=== PATIENT | female | born 1970 | race Caucasian/White ===

== ENCOUNTER 2017-01-16 09:30 | Inpatient (IN) | payer MEDICARE, OTHER ==
[~2017-01-16] VITALS: Ht 167.6 cm; Wt 84.0 kg
[~2017-01-16 09:30] MED LIST: CARB1TAB48 PO; CETI10 PO; COPA20KI SQ; DIAZ5 PO; EPIP0.3I IM; HALO0.5T PO; METO25TA3 PO; PRAV80TA2 PO; PRED20 PO; REST15CA PO; TIZA2TAB PO; TOPI200 PO; TRAZ50TA12 PO
[2017-01-16 09:36] VITALS: BP 132/75; PULSE 98; RESP 20; TEMP 97.9; O2SAT 95
[2017-01-16] MEDS ORDERED: OXYC1TAB36 PO (10:18)
--- NOTE | 2017-01-16 10:28 | PD ---
HPI Chief Complaint: Pain: Acute or Chronic Time Seen by Provider: 10:07 Travel History International Travel<30 days: No Contact w/Intl Traveler<30days: No Traveled to known affect area: No History of Present Illness HPI The patient was seen and examined in the presence of the nurse. This patient complains of a flare of her MS. It started last night. Duration is 12 hours. She developed worsening weakness in both legs and essentially paralysis in her left arm. It is contracted and she cannot move it. She called the ambulance this morning who brought her in. No alleviating factors. Symptoms are severe. No fever or head injury. PFSH Past Medical History Hx Anticoagulant Therapy: Yes (ASA) Arthritis: No Asthma: No Autoimmune Disease: No Blood Disorders: No Anxiety: Yes Depression: Yes Heart Rhythm Problems: Yes (HX V-TACH) Cancer: Yes Cardiovascular Problems: Yes ([place] 2013) High Cholesterol: Yes Chemotherapy: No Chest Pain: No Congestive Heart Failure: No COPD: No Cerebrovascular Accident: Yes (CVA 2013) Diabetes: Yes Diminished Hearing: No Endocrine: Yes Fibromyalgia: Yes GERD: No Genitourinary: Yes Headaches: Yes Hiatal Hernia: No Hypertension: Yes Immune Disorder: No Implanted Vascular Access Dvce: Yes Kidney Stones: No Musculoskeletal: No Neurologic: Yes (MS) Psychiatric: Yes Reproductive: Yes (HPV) Respiratory: Yes (BILATERAL LUNG CANCER) Migraines: No Radiation Therapy: Yes Renal Failure: No Seizures: Yes Sickle Cell Disease: No Sleep Apnea: No Thyroid Disease: No Ulcer: No ?: Not Menopausal: Yes : 3 Para: 3 Past Surgical History Abdominal Surgery: No AICD: No Appendectomy: Yes Arteriovenous Shunt: No Body Medical Devices: RIGHT VENTRICULAR SHUNT Cardiac Surgery: No Section: Yes (X 2) Ear Surgery: No Endocrine Surgery: No Eye Surgery: Yes Genitourinary Surgery: No Gynecologic Surgery: Yes (HYSTERECTOMY) Hysterectomy: Yes Insulin Pump: No Joint Replacement: No Neurologic Surgery: Yes (BRAIN X4; SPINE X2, SHUNT, CHIARI REPAIR) Oral Surgery: No Pacemaker: No Thoracic Surgery: No Other Surgery: Yes (BRAIN-SHUNT) Social History Alcohol Use: No Tobacco Use: No Substance Use: No Allergies-Medications (Allergen,Severity, Reaction): Coded Allergies: Codeine (Verified Allergy, Severe, 08/05/16) Penicillin (Verified Allergy, Severe, 08/05/16) MRI PRECAUTION (Verified Adverse Reaction, Severe, ANEURYSM CLIPS 11/18/13 VSV, 08/05/16) Uncoded Allergies: MRI due to anerysm clips (Allergy, Severe, contraindicated , 11/18/13) spoke with Michaelle Foy. Reported Meds & Prescriptions Reported Meds & Active Scripts Active Prednisone 20 Mg Tab 60 Mg PO DIRECTED 30 Days PREDNISONE 60MG DAILY x 7 DAYS, PREDNISONE 40MG DAILY x 7 DAYS, PREDNISONE 20MG DAILY x 16 DAYS. Valium (Diazepam) 5 Mg Tab 5 Mg PO BID PRN Haloperidol 0.5 Mg Tab 0.5 Mg PO BID Reported Oxycodone-Acetaminophen 10-325 mg Tab 1 Tab PO Q4H PRN Cetirizine (Cetirizine HCl) 10 Mg Tab 10 Mg PO DAILY Trazodone (Trazodone HCl) 50 Mg Tab 50 Mg PO HS Metoprolol Tartrate 25 Mg Tab 12.5 Mg PO DAILY Pravastatin 80 Mg Tab 80 Mg PO HS Topamax (Topiramate) 200 Mg Tab 200 Mg PO DAILY Carbamazepine ER 12 HR (Carbamazepine) 100 Mg Tab 100 Mg PO BID Copaxone Inj (Glatiramer Inj) 20 Mg/Ml Syr 20 Mg SQ DAILY Tizanidine (Tizanidine HCl) 2 Mg Tab 4 Mg PO TID Epipen 2-Corey Inj (Epinephrine) 0.3 Mg/0.3 Ml Pfpen 0.3 Mg IM DIRECTED PRN Review of Systems General / Constitutional: No: Fever Eyes: No: Visual changes HENT: No: Headaches Cardiovascular: No: Chest Pain or Discomfort Respiratory: No: Shortness of Breath Gastrointestinal: No: Abdominal Pain Genitourinary: No: Dysuria Musculoskeletal: Positive: Myalgias, Arthralgias, Limited ROM, Weakness, No: Pain Skin: No Rash Neurologic: Positive: Weakness Psychiatric: No: Depression Endocrine: No: Polydipsia Hematologic/Lymphatic: No: Easy Bruising Physical Exam Narrative GENERAL: Well-nourished, well-developed patient in no apparent distress. SKIN: Focused skin assessment reveals no rash and nodules. Skin is Warm and dry. HEAD: Atraumatic. Normocephalic. EYES: Pupils equal and round. No scleral icterus. No injection or drainage. ENT: No nasal bleeding or discharge. Mucous membranes pink and moist. NECK: Trachea midline. No JVD. CARDIOVASCULAR: Regular rate and rhythm. No murmur appreciated. RESPIRATORY: No accessory muscle use. Clear to auscultation. Breath sounds equal bilaterally. GASTROINTESTINAL: Abdomen soft, non-tender, nondistended. Hepatic and splenic margins not palpable. MUSCULOSKELETAL: No obvious deformities. No clubbing. No cyanosis. No edema. NEUROLOGICAL: Awake and alert. No obvious cranial nerve deficits. Motor exam reveals a contracted left arm which she cannot move at all. Decent strength in the right arm. Very limited strength in the legs. She can barely lift them off the bed. She can wiggle her toes. Soft-spoken but understandable speech PSYCHIATRIC: Appropriate mood and affect; insight and judgment normal. Data Data Last Documented VS Vital Signs Date Time Temp Pulse Resp B/P Pulse Ox O2 Delivery O2 Flow Rate FiO2 01/16/17 09:36 97.9 98 20 132/75 95 Orders Iv Access Insert/Monitor (01/16/17 10:20) Complete Blood Count With Diff (01/16/17 10:20) Basic Metabolic Panel (Bmp) (01/16/17 10:20) Ct Brain W/O Iv Contrast(Rout) (01/16/17 ) Vascular Access Team Consult/P PRN (01/16/17 11:51) Vascular Poc Ultrasound (01/16/17 ) Place In Observation (01/16/17 ) Code Status (01/16/17 11:57) Vital Signs (Adult) Q4H (01/16/17 11:57) Neuro Checks Q4H (01/16/17 11:57) Activity Oob Ad [place] (01/16/17 11:57) Diet Heart Healthy (01/16/17 Lunch) Sodium Chloride 0.9% Flush (Ns Flush) (01/16/17 12:00) Sodium Chloride 0.9% Flush (Ns Flush) (01/16/17 21:00) Ondansetron Inj (Zofran Inj) (01/16/17 12:00) Basic Metabolic Panel (Bmp) (01/17/17 06:00) Complete Blood Count With Diff (01/17/17 06:00) Pt Request For Service (01/16/17 11:57) Ot Request For Service (01/16/17 11:57) Case Management Consult (01/16/17 11:57) Enoxaparin Inj (Lovenox Inj) (01/16/17 13:00) Naloxone Inj (Narcan Inj) (01/16/17 12:00) Acetaminophen (Tylenol) (01/16/17 12:00) Ibuprofen (Motrin) (01/16/17 12:00) Oxycodone-Acetamin 5-325 Mg (Percocet (01/16/17 12:00) Oxycodone-Acetamin 10-325 Mg (Percocet 1 (01/16/17 12:00) Morphine Inj (Morphine Inj) (01/16/17 12:00) Naloxone Inj (Narcan Inj) (01/16/17 12:00) Code Status (01/16/17 12:03) Admit Order (Ed Use Only) (01/16/17 12:11) Labs Laboratory Tests Test 01/16/17 10:30 White Blood Count 11.1 TH/MM3 Red Blood Count 4.76 MIL/MM3 Hemoglobin 14.6 GM/DL Hematocrit 43.1 % Mean Corpuscular Volume 90.5 FL Mean Corpuscular Hemoglobin 30.7 PG Mean Corpuscular Hemoglobin 33.9 % Concent Red Cell Distribution Width 14.4 % Platelet Count 190 TH/MM3 Mean Platelet Volume 9.6 FL Neutrophils (%) (Auto) 69.7 % Lymphocytes (%) (Auto) 23.1 % Monocytes (%) (Auto) 6.8 % Eosinophils (%) (Auto) 0.2 % Basophils (%) (Auto) 0.2 % Neutrophils # (Auto) 7.7 TH/MM3 Lymphocytes # (Auto) 2.6 TH/MM3 Monocytes # (Auto) 0.8 TH/MM3 Eosinophils # (Auto) 0.0 TH/MM3 Basophils # (Auto) 0.0 TH/MM3 CBC Comment DIFF FINAL Differential Comment Sodium Level 145 MEQ/L Potassium Level 3.5 MEQ/L Chloride Level 113 MEQ/L Carbon Dioxide Level 20.8 MEQ/L Anion Gap 11 MEQ/L Blood Urea Nitrogen 15 MG/DL Creatinine 0.74 MG/DL Estimat Glomerular Filtration 84 ML/MIN Rate Random Glucose 112 MG/DL Calcium Level 9.1 MG/DL MDM Medical Decision Making Medical Screen Exam Complete: Yes Emergency Medical Condition: Yes Medical Record Reviewed: Yes Differential Diagnosis Exacerbation of MS, CVA, anxiety Narrative Course I have reviewed the patient's electronic medical record. Patient was admitted for MS flare July 2016 and I reviewed the neurologic consultation CBC is normal Metabolic profile is normal CT brain shows no change from prior. Incidental findings are noted. Patient has a rather profound presentation which may be some degree of MS and also some degree of psychiatric. It's hard to sort out. I did review in detail with neurologist cell operation supervisor who recommended admission with a consult to him. He recommends holding off on any multiple sclerosis type of medication such as steroids until he can evaluate the patient. I reviewed with the medical residents who will admit Diagnosis Primary Impression: Multiple sclerosis exacerbation Admitting Information Admitting Physician Requests: Admit Mumtaz Keith MD Jan 16, 2017 10:27
[2017-01-16 10:44] LABS: AUTOMATED NEUTROPHIL # 7.7 TH/MM3 (1.8-7.7); BASOPHIL % 0.2 % (0.0-2.0); EOSINOPHIL % 0.2 % (0.0-4.0); HEMATOCRIT 43.1 % (35.0-46.0); LYMPH % 23.1 % (9.0-44.0); LYMPHOCYTE # 2.6 TH/MM3 (1.0-4.8); MEAN CELL VOLUME 90.5 FL (80.0-100.0); MEAN CORPUSCULAR HEMOGLOBIN 30.7 PG (27.0-34.0); MEAN CORPUSCULAR HGB CONC 33.9 % (32.0-36.0); MONO % 6.8 % (0.0-8.0); NEUT % 69.7 % (16.0-70.0); PLATELET COUNT 190 TH/MM3 (150-450); RED BLOOD COUNT 4.76 MIL/MM3 (4.00-5.30); RED CELL DISTRIBUTION WIDTH 14.4 % (11.6-17.2); WHITE BLOOD COUNT 11.1 TH/MM3 (4.0-11.0)
[2017-01-16 10:45] LABS: HEMO FLAGS DIFF FINAL
[2017-01-16 11:00] LABS: BICARBONATE 20.8 MEQ/L (21.0-32.0); POTASSIUM 3.5 MEQ/L (3.5-5.1)
--- NOTE | 2017-01-16 11:01 | RADRPT ---
EXAM DATE/TIME: 01/16/2017 10:46 [facility] COMPARISON: CT BRAIN W/O CONTRAST, January 18, 2015, 16:51. CT BRAIN W/O CONTRAST, July 29, 2016, 18:17. INDICATIONS : Generalized pain and weakness. RADIATION DOSE: 43.30 CTDIvol (mGy) MEDICAL HISTORY : Seizures. Cardiovascular disease Hypertension.cva, MS, lung cancer SURGICAL HISTORY : Hysterectomy. shunt, aneurysm clipping ENCOUNTER: Initial ACUITY: 1 day PAIN SCALE: 10/10 LOCATION: cranial TECHNIQUE: Multiple contiguous axial images were obtained of the head. Using automated exposure control and adj ustment of the mA and/or kV according to patient size, radiation dose was kept as low as reasonably a chievable to obtain optimal diagnostic quality images. FINDINGS: There is ventriculostomy catheter in place with small slitlike ventricles. Aneurysm clips are seen o n the left. There is no parenchymal hemorrhage, mass effect or midline shift. There are no extra-ax ial fluid collections appreciated. Posterior fossa is unremarkable. CONCLUSION: Status post ventriculostomy and aneurysm clipping. Ventricles are small and slitlike., Stable in th e interval. Aneurysm clips are noted. Roman Scanlon MD FACR on January 16, 2017 at 10:51 Board Certified Radiologist. This report was verified electronically.
[2017-01-16] MEDS ORDERED: MORPHINE SULFATE 4 MG/ML INJ IV PRN (12:00)
[2017-01-16] MEDS ORDERED: ACETAMINOPHEN 325 MG TAB PO PRN (12:00)
[2017-01-16] MEDS ORDERED: IBUPROFEN 400 MG TAB PO PRN (12:00)
[2017-01-16] MEDS ORDERED: NALOXONE HCL 0.4 MG/ML AMP IV PRN ×2 (12:00)
[2017-01-16] MEDS ORDERED: SODIUM CHLORIDE 0.9% FLUSH 10 ML FLUSH IV FLUSH PRN (12:00)
[2017-01-16] MEDS ORDERED: ONDANSETRON HCL 4 MG/2 ML VIAL IVP PRN (12:00)
[2017-01-16] MEDS ORDERED: oxyCODONE/ACETAMINOPHEN 5 MG/325 MG TAB PO PRN (12:00)
--- NOTE | 2017-01-16 12:16 | HHI.HP ---
[facility] Service Family Medicine Primary Care Physician Dc Gutierrez MD Admission Diagnosis exac of MS Diagnoses: International Travel<30 Days: No Contact w/Intl Traveler<30days: No Known Affected Area: No History of Present Illness Of note patient is a poor historian This is a 46 year old women with an extensive past medical history of HTN, Hyperlipidemia, Anxiety, Depression, Fibromyalgia, IBS, SLINGER SEQUINS Shunt and MS who came into the ER complaints of a flareup of her MS. She says that starting last night she felt her left arm kory in her feet kory inwards. Her arm became contracted to the point where she can no longer move it this morning. This concerned her and she decided to come to the [facility] ED for further evaluation. She does report for the last 2 days noticing worsening blurriness when she is watching TV. She says that she has to swing her hips in order to walk to the contractions in her feet. Her muscles are painful throughout her entire body. Of note she reports that she's been without her chronic opiates for the last few days. (Alonso Deal MD R2) Review of Systems ROS Limitations: Clinical Condition, Poor Historian Constitutional: COMPLAINS OF: Fatigue, Dizziness, DENIES: Fever, Weight gain, Weight loss, Change in appetite Endocrine: DENIES: Polyuria, Polyphagia Eyes: COMPLAINS OF: Blurred vision, Vision loss, DENIES: Diplopia, Eye inflammation, Eye pain, Photosensitivity, Double Vision Ears, nose, mouth, throat: DENIES: Tinnitus, Hearing loss, Oral lesions, Throat pain, Hoarseness, Ear Pain, Running Nose, Sinus Pain Respiratory: COMPLAINS OF: Wheezing, DENIES: Cough, Sputum production, Shortness of breath Cardiovascular: DENIES: Chest pain, Lower Extremity Edema Gastrointestinal: COMPLAINS OF: Diarrhea, DENIES: Abdominal pain, Black stools , Bloody stools, Constipation, Nausea, Vomiting Genitourinary: DENIES: Dyspareunia, Urinary frequency, Urinary incontinence, Urgency, Vaginal discharge Musculoskeletal: DENIES: Joint pain, Joint Swelling, Back pain, Neck pain Integumentary: DENIES: Pruritus, Rash Hematologic/lymphatic: DENIES: Bruising Immunologic/allergic: DENIES: Eczema Neurologic: COMPLAINS OF: Abnormal gait, Headache, Localized weakness, Paresthesias, Poor Balance, DENIES: Seizures, Speech Problems, Tremor Psychiatric: COMPLAINS OF: Anxiety, DENIES: Depression (Alonso Deal MD R2) Past Family Social History Past Medical History HTN, Hyperlipidemia, Anxiety, Depression, Fibromyalgia, IBS, SLINGER SEQUINS Shunt and MS Past Surgical History Appendectomy, SLINGER SEQUINS Shunt, , Hysterectomy Reported Medications Reported Meds & Active Scripts Active Prednisone 20 Mg Tab 60 Mg PO DIRECTED 30 Days PREDNISONE 60MG DAILY x 7 DAYS, PREDNISONE 40MG DAILY x 7 DAYS, PREDNISONE 20MG DAILY x 16 DAYS. Valium (Diazepam) 5 Mg Tab 5 Mg PO BID PRN Haloperidol 0.5 Mg Tab 0.5 Mg PO BID Reported Oxycodone-Acetaminophen 10-325 mg Tab 1 Tab PO Q4H PRN Cetirizine (Cetirizine HCl) 10 Mg Tab 10 Mg PO DAILY Trazodone (Trazodone HCl) 50 Mg Tab 50 Mg PO HS Metoprolol Tartrate 25 Mg Tab 12.5 Mg PO DAILY Pravastatin 80 Mg Tab 80 Mg PO HS Topamax (Topiramate) 200 Mg Tab 200 Mg PO DAILY Carbamazepine ER 12 HR (Carbamazepine) 100 Mg Tab 100 Mg PO BID Copaxone Inj (Glatiramer Inj) 20 Mg/Ml Syr 20 Mg SQ DAILY Tizanidine (Tizanidine HCl) 2 Mg Tab 4 Mg PO TID Epipen 2-Corey Inj (Epinephrine) 0.3 Mg/0.3 Ml Pfpen 0.3 Mg IM DIRECTED PRN ( Alonso Deal MD R2) Allergies: Coded Allergies: Codeine (Verified Allergy, Severe, 08/05/16) Penicillin (Verified Allergy, Severe, 08/05/16) MRI PRECAUTION (Verified Adverse Reaction, Severe, ANEURYSM CLIPS 11/18/13 VSV, 08/05/16) Uncoded Allergies: MRI due to anerysm clips (Allergy, Severe, contraindicated , 11/18/13) spoke with Michaelle Foy. 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 SKIN: Focused skin assessment reveals no rash and nodules. Skin is Warm and dry. HEAD: Atraumatic. Normocephalic. EYES: Pupils equal and round. No scleral icterus. No injection or drainage. ENT: No nasal bleeding or discharge. Mucous membranes pink and moist. NECK: Trachea midline. No JVD. CARDIOVASCULAR: Regular rate and rhythm. No murmur appreciated. RESPIRATORY: No accessory muscle use. Clear to auscultation. Breath sounds equal bilaterally. GASTROINTESTINAL: Abdomen soft, non-tender, nondistended. Hepatic and splenic margins not palpable. MUSCULOSKELETAL: No obvious deformities. No clubbing. No cyanosis. No edema. NEUROLOGICAL: Awake and alert. No obvious cranial nerve deficits. Motor exam reveals a contracted left arm which she cannot move at all. Decent strength in the right arm. Very limited strength in the legs. She can barely lift them off the bed. She can wiggle her toes. When distracted patient has increased movement in arm and legs. Normal speech PSYCHIATRIC: Appropriate mood and affect; insight and judgment normal. Laboratory Laboratory Tests Test 01/16/17 10:30 White Blood Count 11.1 Red Blood Count 4.76 Hemoglobin 14.6 Hematocrit 43.1 Mean Corpuscular Volume 90.5 Mean Corpuscular Hemoglobin 30.7 Mean Corpuscular Hemoglobin 33.9 Concent Red Cell Distribution Width 14.4 Platelet Count 190 Mean Platelet Volume 9.6 Neutrophils (%) (Auto) 69.7 Lymphocytes (%) (Auto) 23.1 Monocytes (%) (Auto) 6.8 Eosinophils (%) (Auto) 0.2 Basophils (%) (Auto) 0.2 Neutrophils # (Auto) 7.7 Lymphocytes # (Auto) 2.6 Monocytes # (Auto) 0.8 Eosinophils # (Auto) 0.0 Basophils # (Auto) 0.0 CBC Comment DIFF FINAL Differential Comment Sodium Level 145 Potassium Level 3.5 Chloride Level 113 Carbon Dioxide Level 20.8 Anion Gap 11 Blood Urea Nitrogen 15 Creatinine 0.74 Estimat Glomerular Filtration 84 Rate Random Glucose 112 Calcium Level 9.1 (Alonso Deal MD R2) Result Diagram: 01/16/17 1030 01/16/17 1030 Imaging Last Impressions Head CT 01/16/17 0000 Signed Impressions: Service Date/Time: Monday, January 16, 2017 10:46 - CONCLUSION: Status post ventriculostomy and aneurysm clipping. Ventricles are small and slitlike., Stable in the interval. Aneurysm clips are noted. Roman Scanlon MD FACR (Alonso Deal MD R2) Assessment and Plan Assessment and Plan This is a 46 year old women with an extensive past medical history of HTN, Hyperlipidemia, Anxiety, Depression, Fibromyalgia, IBS, SLINGER SEQUINS Shunt and MS being admitted for multiple sclerosis exacerbation. Code Status DNR Discussed Condition With [facility]: Dr. Jarrell (Alonso Deal MD R2) Attending Attestation Patient seen and examined. Case reviewed and discussed with the resident team. Agree with plan of care as discussed with me and documented in the resident note. pt seen on admission in ED (Munira Jarrell MD) Problem List: (1) Multiple sclerosis exacerbation Status: Acute Plan: Acute on chronic exacerbation of her multiple sclerosis. CT did not show any acute changes. Current symptoms involved contracture of the left arm and weakness of the lower extremities. * Admit to observation * Neurology consulted recommendations appreciated * Per current recommendations will not start steroids until evaluated by neurologist * Zofran for nausea/vomiting * Percocet 5/325 mg every 6 hours when necessary 3-5 * Percocet 10/325 mg every 6 hours when necessary 6-10 * 2 mg IV every 3 hours when necessary breakthrough pain * Continue home medication of Glatiramer inj * CBC, BMP ordered for the a.m. 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 * Status post SLINGER SEQUINS shunt, CT unchanged from previous imaging will continue to monitor (5) brain aneurysm status post clipping Status: Resolved 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 * Continue to monitor at this time CT unchanged from previous imaging (6) Depression Status: Chronic Plan: Long-standing history of anxiety and depression * Continue home medication of trazodone 50 mg by mouth at bedtime * Continue home medication of diazepam 5 mg by mouth twice a day when necessary anxiety (7) Nutrition, metabolism, and development symptoms Status: Acute Plan: Diet: Heart healthy Monitor electrolytes and replace accordingly Out of bed ad fredrick. Vitals every 4 Neuro checks every 4 DVT prophylaxis with Lovenox Disposition: Pending neurology recommendations Code Status: DNR (Alonso Deal MD R2) Problem Qualifiers (1) HTN (hypertension): Qualified Code: I10 - Essential hypertension (2) Depression: Qualified Code: F32.9 - Depression, unspecified depression type Alonso Deal MD R2 Jan 16, 2017 12:16 Munira Jarrell MD Jan 17, 2017 13:07
[2017-01-16 15:00] VITALS: BP 132/68; PULSE 68; RESP 18; O2SAT 98
[2017-01-16] MEDS: ENOXAPARIN SODIUM 40 MG/0.4 ML SYRINGE SQ SCH (15:53)
[2017-01-16 16:00] VITALS: BP 115/59; PULSE 67; RESP 18; O2SAT 98
[2017-01-16] MEDS: PANTOPRAZOLE SODIUM 40 MG VIAL IV PUSH SCH (16:10)
[2017-01-16] MEDS: methylPREDNISolone SOD SUCC 125 MG/2 ML VIAL IV PUSH SCH ×3 (16:11→23:03)
--- NOTE | 2017-01-16 19:31 | MB ---
cc: MARY VANG M.D. DATE OF CONSULTATION 01/16/2017 She is a 46-year-old woman seen in neurological consultation. Case discussed with Dr. Keith a couple of hours ago. The patient has multiple sclerosis. She follows with Dr. Foy. She has been on Copaxone three times a week. She has had MS apparently since 2013 or so. She has a history of hospitalization in July or August last year with a somewhat similar situation. She came in this time because of left arm spasming in a contracture manner, flexed. She also describes that her feet have turned to be somewhat contracted when she is walking and all of this started yesterday, last evening more precisely. She describes that in July or August last year she had both arms involved in the same situation and she was at the hospital and was treated with steroids IV as usual. She also had another bout of multiple sclerosis and I believe this was a couple of years ago when she was paralyzed from the neck down and she stayed in the rehab hospital for 4 months or so after the acute care. Furthermore her neurologic history includes what she describes as pseudotumor cerebri and bilateral cerebral aneurysm. She had the left-sided aneurysmal clip and she says the right was not clamped. She as Chiari malformation. She is on chronic pain killer oxycodone. She takes what appears to be low dose Haldol, nifedipine, Valium. She has severe paraparesis. She describes that she walks using her hips rather than her legs and she shuffles. She uses a cane and wheelchair or an electric scooter type of equipment. She lives in assisted living facility. PHYSICAL EXAMINATION On exam she is actually quite pleasant and provided the detailed history. I have not had a chance to review much of records on her. She is in no distress. Pupils were equal, reactive. Visual cho full. Speech and language appears to be all normal. She is edentulous. Her right arm is functioning well, appears to be normal. Her left arm is in contracture, flexed at the elbow very strongly and even when I try to release it, I was unable to do that more than just an inch or so of elbow extension. The wrist itself is somewhat flaccid and there is minimal finger movements. She also resists left shoulder range of motion. The legs are increased in tone mildly and flaccid with very mild toe motion voluntarily. She has hip motor function, rotate the legs through the hip muscles. She is unable to flex the knee. Reflexes were trace responses, plantar responses equivocal possibly extensor bilaterally. Position sense with some impairment in the distal lower extremities but partially preserved. With encouragement she was able to moderate change in position. No sensory level. ASSESSMENT History of multiple sclerosis. Multiple other neurological diagnoses as outlined above and there is some psychiatric history including anxiety. It is possible that she has a genuine multiple sclerosis exacerbation though it is difficult to understand these sudden contracture type of posturing rather than just weakness initially to explain the motor change. I will give her the benefit of the doubt and start her on Solu-Medrol as she desires and she has done through these in the past with good results without complications. She will be started on Solu-Medrol 250 IV q.6h for 12 doses and Protonix 40 mg a day. Because of her aneurysm clipping, MRI is not readily feasible at least, though the patient claims that when she lived in [place] she used to have MRI studies, unclear to me if this was definitely before the clip. Otherwise general medical care. DVT prophylaxis with SCDs. Start physical therapy, perhaps tomorrow. I looked at the CT brain that was negative for acute process but showed ventriculostomy as per the patient this is secondary to the pseudo tumor cerebri and it also showed the aneurysmal clip. The CBC and chemistry relatively benign. Thank you for asking us to assist in her care. Mary Vang MD OF[facility]/KK /3:18 PM /7:01 PM
[2017-01-16 21:00] VITALS: BP 118/65; PULSE 84; RESP 16; O2SAT 100
[2017-01-16] MEDS: SODIUM CHLORIDE 0.9% FLUSH 10 ML FLUSH IV FLUSH SCH (21:00)
[2017-01-16] MEDS ORDERED: HALOPERIDOL 0.5 MG TAB PO PRN (21:00)
[2017-01-16] MEDS ORDERED: HALOPERIDOL 0.5 MG TAB PO SCH (21:00)
[2017-01-16] MEDS: PRAVASTATIN SOD 80 MG TAB PO SCH (21:46)
[2017-01-16] MEDS: traZODone HCL 50 MG TAB PO SCH (21:46)
[2017-01-16] MEDS: oxyCODONE/ACETAMINOPHEN 10 MG/325 MG TAB PO PRN (21:47)
[2017-01-16] MEDS: DIAZEPAM 5 MG TAB PO PRN (21:47)
[2017-01-16 23:02] VITALS: BP 116/60; PULSE 59; RESP 20; TEMP 97.9; O2SAT 96
[2017-01-17] MEDS: oxyCODONE/ACETAMINOPHEN 10 MG/325 MG TAB PO PRN ×3 (03:24→21:58)
[2017-01-17 03:47] VITALS: BP 89/49; PULSE 54; RESP 20; TEMP 97.7; O2SAT 98
[2017-01-17 06:07] VITALS: BP 104/76
[2017-01-17 08:10] VITALS: BP 97/50; PULSE 60; RESP 19; TEMP 97.9; O2SAT 98
[2017-01-17] MEDS ORDERED: GLATIRAMER 40 MG SQ SCH (09:00)
--- NOTE | 2017-01-17 09:14 | HHI.PR ---
Review/Management Daily Summary 01/17 same cx and exam unchanged continue plans solumedrol monitor neuro pt eval Subjective Subjective Comments No new acute events reported No headache No chest pain No dyspnea Active Medications Current Medications Medications (Trade) Dose Ordered Sig/Chandler Route Start Time Stop Time Status Last Admin (NS Flush) 2 ml UNSCH PRN IV FLUSH 01/16/17 12:00 (NS Flush) 2 ml BID IV FLUSH 01/16/17 21:00 (Zofran Inj) 4 mg Q6H PRN IVP 01/16/17 12:00 (Lovenox Inj) 40 mg Q24H SQ 01/16/17 13:00 01/16/17 15:53 (Tylenol) 650 mg Q6H PRN PO 01/16/17 12:00 (Percocet 5-325 Mg) 1 tab Q6H PRN PO 01/16/17 12:00 01/16/17 12:26 (Percocet 10-325 Mg) 1 tab Q6H PRN PO 01/16/17 12:00 01/17/17 03:24 (Morphine Inj) 2 mg Q3H PRN IV 01/16/17 12:00 01/16/17 16:15 (Narcan Inj) 0.4 mg UNSCH PRN IV 01/16/17 12:00 (ZyrTEC) 10 mg DAILY PO 01/17/17 09:00 (Valium) 5 mg BID PRN PO 01/16/17 15:00 01/16/17 21:47 (Lopressor) 12.5 mg DAILY PO 01/17/17 09:00 (Pravachol) 80 mg HS PO 01/16/17 21:00 01/16/17 21:46 (Zanaflex) 4 mg TID PO 01/16/17 18:00 01/16/17 18:07 (Topamax) 200 mg DAILY PO 01/17/17 09:00 (Desyrel) 50 mg HS PO 01/16/17 21:00 01/16/17 21:46 (TEGretol CHEW) 100 mg BID PO 01/16/17 21:00 01/16/17 21:00 Patient Own Medication PT OWN MED: Glatira... DAILY SQ 01/17/17 09:00 Hold (Haldol) 0.5 mg BID PRN PO 01/16/17 21:00 (Protonix Inj) 40 mg DAILY IV PUSH 01/16/17 16:00 01/16/17 16:10 (SoluMEDROL INJ) 250 mg Q6H IV PUSH 01/16/17 17:00 01/16/17 23:03 Allergies Allergies Coded Allergies Codeine (Verified Allergy, Severe, 08/05/16) Penicillin (Verified Allergy, Severe, 08/05/16) MRI PRECAUTION (Verified Adverse Reaction, Severe, ANEURYSM CLIPS 11/18/13 VSV , 08/05/16) Uncoded Allergies MRI due to anerysm clips ( Allergy, Severe, contraindicated , 11/18/13) Review of Systems All other ROS: ROS reviewed as documented in chart Exam I&O / VS Vital Signs Date Time Temp Pulse Resp B/P Pulse Ox O2 Delivery O2 Flow Rate FiO2 01/17/17 08:10 97.9 60 19 97/50 98 01/17/17 06:07 104/76 01/17/17 03:55 14 01/17/17 03:47 97.7 54 20 89/49 98 01/16/17 23:02 97.9 59 20 116/60 96 01/16/17 21:00 84 16 118/65 100 Room Air 01/16/17 16:00 67 18 115/59 98 Room Air 01/16/17 15:00 68 18 132/68 98 01/16/17 09:36 97.9 98 20 132/75 95 Neurologic: Alert, Oriented Psychiatric: Cooperative, Appropriate mood & affect, Normal judgement Objective Micro and Labs Laboratory Tests Test 01/16/17 10:30 White Blood Count 11.1 Red Blood Count 4.76 Hemoglobin 14.6 Hematocrit 43.1 Mean Corpuscular Volume 90.5 Mean Corpuscular Hemoglobin 30.7 Mean Corpuscular Hemoglobin 33.9 Concent Red Cell Distribution Width 14.4 Platelet Count 190 Mean Platelet Volume 9.6 Neutrophils (%) (Auto) 69.7 Lymphocytes (%) (Auto) 23.1 Monocytes (%) (Auto) 6.8 Eosinophils (%) (Auto) 0.2 Basophils (%) (Auto) 0.2 Neutrophils # (Auto) 7.7 Lymphocytes # (Auto) 2.6 Monocytes # (Auto) 0.8 Eosinophils # (Auto) 0.0 Basophils # (Auto) 0.0 CBC Comment DIFF FINAL Differential Comment Sodium Level 145 Potassium Level 3.5 Chloride Level 113 Carbon Dioxide Level 20.8 Anion Gap 11 Blood Urea Nitrogen 15 Creatinine 0.74 Estimat Glomerular Filtration 84 Rate Random Glucose 112 Calcium Level 9.1 Jaxson Vang MD Jan 17, 2017 09:14
[2017-01-17] MEDS: METOPROLOL TARTRATE 25 MG TAB PO SCH (10:00)
[2017-01-17] MEDS: PANTOPRAZOLE SODIUM 40 MG VIAL IV PUSH SCH (10:01)
[2017-01-17] MEDS: CETIRIZINE HCL 10 MG TAB PO SCH (10:01)
[2017-01-17] MEDS: TOPIRAMATE 200 MG TAB PO SCH (10:01)
[2017-01-17] MEDS: SODIUM CHLORIDE 0.9% FLUSH 10 ML FLUSH IV FLUSH SCH ×2 (10:02→21:58)
[2017-01-17] MEDS: DIAZEPAM 5 MG TAB PO PRN (10:10)
[2017-01-17 10:46] LABS: AUTOMATED NEUTROPHIL # 15.9 TH/MM3 (1.8-7.7); HEMATOCRIT 41.5 % (35.0-46.0); HEMO FLAGS DIFF FINAL; LYMPH % 13.9 % (9.0-44.0); LYMPHOCYTE # 2.8 TH/MM3 (1.0-4.8); MEAN CELL VOLUME 88.9 FL (80.0-100.0); MEAN CORPUSCULAR HEMOGLOBIN 30.4 PG (27.0-34.0); MEAN CORPUSCULAR HGB CONC 34.2 % (32.0-36.0); MONO % 5.5 % (0.0-8.0); NEUT % 80.6 % (16.0-70.0); PLATELET COUNT 202 TH/MM3 (150-450); RED BLOOD COUNT 4.67 MIL/MM3 (4.00-5.30); WHITE BLOOD COUNT 19.8 TH/MM3 (4.0-11.0)
--- NOTE | 2017-01-17 10:57 | HHI.HP ---
[facility] Service Family Medicine Primary Care Physician Dc Gutierrez MD Admission Diagnosis exac of MS Diagnoses: (1) Multiple sclerosis exacerbation Diagnosis: Principal (2) HTN (hypertension) Diagnosis: Principal (3) Seizure disorder Diagnosis: Principal (4) Chiari malformation Diagnosis: Principal (5) brain aneurysm status post clipping Diagnosis: Principal (6) Depression Diagnosis: Principal (7) Nutrition, metabolism, and development symptoms Diagnosis: Principal Chief Complaint: MS Exacerbation International Travel<30 Days: No Contact w/Intl Traveler<30days: No Known Affected Area: No History of Present Illness Of note patient is a poor historian Ms Lara is a 46 year old women with an extensive past medical history of HTN , Hyperlipidemia, Anxiety, Depression, Fibromyalgia, IBS, WATER CHASER Shunt and MS who came into the ER complaints of a flareup of her MS. She says that starting last night she felt her left arm kory and her feet kory inwards. Her arm became contracted to the point where she could no longer move it. This concerned her and she decided to come to the [facility] for further evaluation. She does report for the last 2 days noticing worsening blurriness when she is watching TV. She says that she has to swing her hips in order to walk to the contractions in her feet. Her muscles are painful throughout her entire body. Of note she reports that she's been without her chronic opiates for the last few days. She was started on steroids and is about the same today with her pain and strength and complaining of severe pain and requesting dilaudid. She is concerned that her medicine to prevent MS flares is not working as well as this is her second flare within 6 months and she had done better prior to this Review of Systems Other ROS Limitations: Clinical Condition, Poor Historian Constitutional: COMPLAINS OF: Fatigue, Dizziness, DENIES: Fever, Weight gain, Weight loss, Change in appetite Endocrine: DENIES: Polyuria, Polyphagia Eyes: COMPLAINS OF: Blurred vision, Vision loss, DENIES: Diplopia, Eye inflammation, Eye pain, Photosensitivity, Double Vision Ears, nose, mouth, throat: DENIES: Tinnitus, Hearing loss, Oral lesions, Throat pain, Hoarseness, Ear Pain, Running Nose, Sinus Pain Respiratory: COMPLAINS OF: Wheezing, DENIES: Cough, Sputum production, Shortness of breath Cardiovascular: DENIES: Chest pain, Lower Extremity Edema Gastrointestinal: COMPLAINS OF: Diarrhea, DENIES: Abdominal pain, Black stools , Bloody stools, Constipation, Nausea, Vomiting Genitourinary: DENIES: Dyspareunia, Urinary frequency, Urinary incontinence, Urgency, Vaginal discharge Musculoskeletal: DENIES: Joint pain, Joint Swelling, Back pain, Neck pain Integumentary: DENIES: Pruritus, Rash Hematologic/lymphatic: DENIES: Bruising Immunologic/allergic: DENIES: Eczema Neurologic: COMPLAINS OF: Abnormal gait, Headache, Localized weakness, Paresthesias, Poor Balance, DENIES: Seizures, Speech Problems, Tremor Psychiatric: COMPLAINS OF: Anxiety, DENIES: Depression Past Family Social History Past Medical History HTN, Hyperlipidemia, Anxiety, Depression, Fibromyalgia, IBS, WATER CHASER Shunt and MS Past Surgical History Appendectomy, WATER CHASER Shunt, , Hysterectomy Allergies: Coded Allergies: Codeine (Verified Allergy, Severe, 08/05/16) Penicillin (Verified Allergy, Severe, 08/05/16) MRI PRECAUTION (Verified Adverse Reaction, Severe, ANEURYSM CLIPS 11/18/13 VSV, 08/05/16) Uncoded Allergies: MRI due to anerysm clips (Allergy, Severe, contraindicated , 11/18/13) spoke with Michaelle Foy. 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 SKIN: Focused skin assessment reveals no rash and nodules. Skin is Warm and dry. HEAD: Atraumatic. Normocephalic. EYES: Pupils equal and round. No scleral icterus. No injection or drainage. ENT: No nasal bleeding or discharge. Mucous membranes pink and moist. NECK: Trachea midline. No JVD. CARDIOVASCULAR: Regular rate and rhythm. No murmur appreciated. RESPIRATORY: No accessory muscle use. Clear to auscultation. Breath sounds equal bilaterally. GASTROINTESTINAL: Abdomen soft, non-tender, nondistended. Hepatic and splenic margins not palpable. MUSCULOSKELETAL: No obvious deformities. No clubbing. No cyanosis. No edema. NEUROLOGICAL: Awake and alert. No obvious cranial nerve deficits. Motor exam reveals a contracted left arm which she can move only with great pain. Decent strength in the right arm. Very limited strength in the legs. She can barely lift them off the bed and uses the muscles in her hips. She can wiggle her toes. When distracted patient has increased movement in arm and legs. Normal speech PSYCHIATRIC: Appropriate mood and affect; insight and judgment normal. Laboratory Laboratory Tests Test 01/17/17 10:05 White Blood Count 19.8 Red Blood Count 4.67 Hemoglobin 14.2 Hematocrit 41.5 Mean Corpuscular Volume 88.9 Mean Corpuscular Hemoglobin 30.4 Mean Corpuscular Hemoglobin 34.2 Concent Red Cell Distribution Width 14.0 Platelet Count 202 Mean Platelet Volume 9.7 Neutrophils (%) (Auto) 80.6 Lymphocytes (%) (Auto) 13.9 Monocytes (%) (Auto) 5.5 Eosinophils (%) (Auto) 0.0 Basophils (%) (Auto) 0.0 Neutrophils # (Auto) 15.9 Lymphocytes # (Auto) 2.8 Monocytes # (Auto) 1.1 Eosinophils # (Auto) 0.0 Basophils # (Auto) 0.0 CBC Comment DIFF FINAL Differential Comment Result Diagram: 01/17/17 1005 01/16/17 1030 Imaging Last Impressions Head CT 01/16/17 0000 Signed Impressions: Service Date/Time: Monday, January 16, 2017 10:46 - CONCLUSION: Status post ventriculostomy and aneurysm clipping. Ventricles are small and slitlike., Stable in the interval. Aneurysm clips are noted. Roman Scanlon MD FACR Assessment and Plan Assessment and Plan This is a 46 year old women with an extensive past medical history of HTN, Hyperlipidemia, Anxiety, Depression, Fibromyalgia, IBS, WATER CHASER Shunt and MS being admitted for multiple sclerosis exacerbation. Problem List: (1) Multiple sclerosis exacerbation Status: Acute Plan: Acute on chronic exacerbation of her multiple sclerosis. CT did not show any acute changes. Current symptoms involved contracture of the left arm and weakness of the lower extremities. * Admit * Neurology consulted recommendations appreciated * on solumedrol 250 q 6 hours x 3 days * Zofran for nausea/vomiting * Percocet 5/325 mg every 6 hours when necessary 3-5 * Percocet 10/325 mg every 6 hours when necessary 6-10, dilaudid if needed * 2 mg IV every 3 hours when necessary breakthrough pain * Continue home medication of Glatiramer inj * CBC, BMP ordered for the a.m. 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 * Status post WATER CHASER shunt, CT unchanged from previous imaging will continue to monitor (5) brain aneurysm status post clipping Status: Resolved 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 * Continue to monitor at this time CT unchanged from previous imaging (6) Depression Status: Chronic Plan: Long-standing history of anxiety and depression * Continue home medication of trazodone 50 mg by mouth at bedtime * Continue home medication of diazepam 5 mg by mouth twice a day when necessary anxiety (7) Nutrition, metabolism, and development symptoms Status: Acute Plan: Diet: Heart healthy Monitor electrolytes and replace accordingly Out of bed ad fredrick. Vitals every 4 Neuro checks every 4 DVT prophylaxis with Lovenox Disposition: Pending neurology recommendations, usually pts go home after 3 days Code Status: DNR Physician Certification 2 Midnight Certification Type: Admission for Inpatient Services Order for Inpatient Services The services are ordered in accordance with Medicare regulations or non- Medicare payer requirements, as applicable. In the case of services not specified as inpatient-only, they are appropriately provided as inpatient services in accordance with the 2-midnight benchmark. Estimated LOS (days): 3 3 days is the estimated time the patient will need to remain in the hospital, assuming treatment plan goals are met and no additional complications. Post-Hospital Plan: [facility] (return to her home) Problem Qualifiers (1) HTN (hypertension): Qualified Code: I10 - Essential hypertension (2) Depression: Qualified Code: F32.9 - Depression, unspecified depression type Munira Jarrell MD Jan 17, 2017 10:57
[2017-01-17 11:03] LABS: BICARBONATE 18.6 MEQ/L (21.0-32.0); POTASSIUM 3.6 MEQ/L (3.5-5.1)
[2017-01-17] MEDS: methylPREDNISolone SOD SUCC 125 MG/2 ML VIAL IV PUSH SCH ×3 (11:37→22:00)
[2017-01-17] MEDS: HYDROmorphone HCL PF 1 MG/ML VIAL IV PUSH PRN ×3 (11:51→23:03)
[2017-01-17] MEDS: ENOXAPARIN SODIUM 40 MG/0.4 ML SYRINGE SQ SCH (13:35)
[2017-01-17 14:59] VITALS: BP 119/71; PULSE 63; RESP 18; TEMP 97.1; O2SAT 94
[2017-01-17 17:53] VITALS: BP 113/74; PULSE 57; RESP 19; TEMP 98.1; O2SAT 97
[2017-01-17 20:30] VITALS: BP 100/50; PULSE 54; RESP 18; TEMP 97.8; O2SAT 96
[2017-01-17] MEDS ORDERED: TEMA15CA PO (21:57)
[2017-01-17] MEDS: PRAVASTATIN SOD 80 MG TAB PO SCH (21:58)
[2017-01-17] MEDS: traZODone HCL 50 MG TAB PO SCH (21:58)
[2017-01-18 00:30] VITALS: BP 105/52; PULSE 56; RESP 17; TEMP 97.7; O2SAT 97
[2017-01-18] MEDS: oxyCODONE/ACETAMINOPHEN 10 MG/325 MG TAB PO PRN ×3 (03:21→15:57)
[2017-01-18] MEDS: methylPREDNISolone SOD SUCC 125 MG/2 ML VIAL IV PUSH SCH ×4 (04:26→23:00)
[2017-01-18] MEDS: HYDROmorphone HCL PF 1 MG/ML VIAL IV PUSH PRN ×4 (04:26→20:54)
[2017-01-18 06:15] VITALS: BP 98/58; PULSE 50; RESP 17; TEMP 97.1; O2SAT 96
--- NOTE | 2017-01-18 08:22 | HHI.FPPN ---
Subjective Remarks Patient seen and examined this morning. Afebrile since stable. Reports that she is doing well and has better feelings and movement in her right hand. Right arm still kory. She says that the Dilaudid is helping with her pain and she has no complaints at this time. She has been enjoying the physical therapy and is looking forward to doing it again today. Understands the plan of care continue the Solu-Medrol at this time. Endorses: Right arm contracted, using hips to walk Denies: Fever, chills, nausea, vomiting, shortness of breath, chest pain, headache, abdominal pain, calf pain (Alonso Deal MD R2) Objective Vitals Vital Signs Date Time Temp Pulse Resp B/P Pulse Ox O2 Delivery O2 Flow Rate FiO2 01/18/17 06:15 97.1 50 17 98/58 96 01/18/17 00:30 97.7 56 17 105/52 97 01/17/17 20:30 97.8 54 18 100/50 96 01/17/17 17:53 98.1 57 19 113/74 97 01/17/17 14:59 97.1 63 18 119/71 94 01/17/17 12:21 16 01/17/17 11:01 18 I/O 01/17/17 01/17/17 01/17/17 01/18/17 01/18/17 01/18/17 07:00 15:00 23:00 07:00 15:00 23:00 Intake Total 510 ml 600 ml 650 ml Balance 510 ml 600 ml 650 ml Intake Oral 510 ml 600 ml 650 ml # Voids 1 2 # Bowel Movements 0 0 (Alonso Deal MD R2) Result Diagram: 01/17/17 1005 01/17/17 1005 Imaging Last Impressions Head CT 01/16/17 0000 Signed Impressions: Service Date/Time: Monday, January 16, 2017 10:46 - CONCLUSION: Status post ventriculostomy and aneurysm clipping. Ventricles are small and slitlike., Stable in the interval. Aneurysm clips are noted. Roman Scanlon MD FACR Objective Remarks GENERAL: Well-nourished, well-developed patient in no apparent distress. SKIN: Focused skin assessment reveals no rash and nodules. Skin is Warm and dry. HEAD: Atraumatic. Normocephalic. EYES: Pupils equal and round. No scleral icterus. No injection or drainage. ENT: No nasal bleeding or discharge. Mucous membranes pink and moist. NECK: Trachea midline. No JVD. CARDIOVASCULAR: Regular rate and rhythm. No murmur appreciated. RESPIRATORY: No accessory muscle use. Clear to auscultation. Breath sounds equal bilaterally. GASTROINTESTINAL: Abdomen soft, non-tender, nondistended. Hepatic and splenic margins not palpable. MUSCULOSKELETAL: No obvious deformities. No clubbing. No cyanosis. No edema. NEUROLOGICAL: Awake and alert. No obvious cranial nerve deficits. Motor exam reveals a contracted left arm which she can move only with great pain, increased movement of the hand and fingers and wrist without pain. Decent strength in the right arm. Very limited strength in the legs. She can barely lift them off the bed and uses the muscles in her hips. She can wiggle her toes. When distracted patient has increased movement in arm and legs. Normal speech PSYCHIATRIC: Appropriate mood and affect; insight and judgment normal. Medications and IVs Current Medications Medications (Trade) Dose Ordered Sig/Chandler Route Start Time Stop Time Status Last Admin (NS Flush) 2 ml UNSCH PRN IV FLUSH 01/16/17 12:00 (NS Flush) 2 ml BID IV FLUSH 01/16/17 21:00 01/17/17 21:58 (Zofran Inj) 4 mg Q6H PRN IVP 01/16/17 12:00 (Lovenox Inj) 40 mg Q24H SQ 01/16/17 13:00 01/17/17 13:35 (Tylenol) 650 mg Q6H PRN PO 01/16/17 12:00 (Percocet 5-325 Mg) 1 tab Q6H PRN PO 01/16/17 12:00 01/16/17 12:26 (Percocet 10-325 Mg) 1 tab Q6H PRN PO 01/16/17 12:00 01/18/17 03:21 (Narcan Inj) 0.4 mg UNSCH PRN IV 01/16/17 12:00 (ZyrTEC) 10 mg DAILY PO 01/17/17 09:00 01/17/17 10:01 (Valium) 5 mg BID PRN PO 01/16/17 15:00 01/17/17 10:10 (Lopressor) 12.5 mg DAILY PO 01/17/17 09:00 01/17/17 10:00 (Pravachol) 80 mg HS PO 01/16/17 21:00 01/17/17 21:58 (Zanaflex) 4 mg TID PO 01/16/17 18:00 01/17/17 18:29 (Topamax) 200 mg DAILY PO 01/17/17 09:00 01/17/17 10:01 (Desyrel) 50 mg HS PO 01/16/17 21:00 01/17/17 21:58 (TEGretol CHEW) 100 mg BID PO 01/16/17 21:00 01/17/17 21:58 Patient Own Medication PT OWN MED: Glatira... DAILY SQ 01/17/17 09:00 Hold (Haldol) 0.5 mg BID PRN PO 01/16/17 21:00 (Protonix Inj) 40 mg DAILY IV PUSH 01/16/17 16:00 01/17/17 10:01 (SoluMEDROL INJ) 250 mg Q6H IV PUSH 01/16/17 17:00 01/18/17 04:26 (Dilaudid Pf Inj) 1 mg Q4H PRN IV PUSH 01/17/17 11:00 01/18/17 04:26 (Alonso Deal MD R2) A/P Assessment and Plan This is a 46 year old women with an extensive past medical history of HTN, Hyperlipidemia, Anxiety, Depression, Fibromyalgia, IBS, CHRONIC CONDITION NURSE Shunt and MS being admitted for multiple sclerosis exacerbation. Discharge Planning Following improvement of current clinical symptoms (Alonso Deal MD R2) Attending Attestation Patient seen and examined. Case reviewed and discussed with the resident team. Agree with plan of care as discussed with me and documented in the resident note. (Munira Jarrell MD) Problem List: (1) Multiple sclerosis exacerbation Status: Acute Plan: Acute on chronic exacerbation of her multiple sclerosis. CT did not show any acute changes. Current symptoms involved contracture of the left arm and weakness of the lower extremities. * Admit to inpatient * Neurology consulted recommendations appreciated * on solumedrol 250 q 6 hours x 3 days (currently on day 2) * Zofran for nausea/vomiting * Percocet 5/325 mg every 6 hours when necessary 3-5 * Percocet 10/325 mg every 6 hours when necessary 6-10 * 2 mg IV Dilaudid every 3 hours when necessary breakthrough pain * Continue home medication of Glatiramer inj * CBC, BMP ordered for the a.m. 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 * Status post CHRONIC CONDITION NURSE shunt, CT unchanged from previous imaging will continue to monitor (5) brain aneurysm status post clipping Status: Resolved 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 * Continue to monitor at this time CT unchanged from previous imaging (6) Depression Status: Chronic Plan: Long-standing history of anxiety and depression * Continue home medication of trazodone 50 mg by mouth at bedtime * Continue home medication of diazepam 5 mg by mouth twice a day when necessary anxiety (7) Nutrition, metabolism, and development symptoms Status: Acute Plan: Diet: Heart healthy Monitor electrolytes and replace accordingly Out of bed ad fredrick. Vitals every 4 Neuro checks every 4 DVT prophylaxis with Lovenox Disposition: Pending neurology recommendations, usually pts go home after 3 days Code Status: DNR (Alonso Deal MD R2) Problem Qualifiers (1) HTN (hypertension): Qualified Code: I10 - Essential hypertension (2) Depression: Qualified Code: F32.9 - Depression, unspecified depression type Alonso Deal MD R2 Jan 18, 2017 08:22 Munira Jarrell MD Jan 19, 2017 10:21
[2017-01-18] MEDS: METOPROLOL TARTRATE 25 MG TAB PO SCH (08:27)
[2017-01-18] MEDS: CETIRIZINE HCL 10 MG TAB PO SCH (08:28)
[2017-01-18] MEDS: SODIUM CHLORIDE 0.9% FLUSH 10 ML FLUSH IV FLUSH SCH ×2 (08:29→20:54)
[2017-01-18] MEDS: PANTOPRAZOLE SODIUM 40 MG VIAL IV PUSH SCH (08:29)
[2017-01-18 09:11] VITALS: BP 112/57; PULSE 70; RESP 17; TEMP 97.3; O2SAT 98
[2017-01-18 09:15] LABS: BASOPHIL # 0.1 TH/MM3 (0-0.2); BASOPHIL % 0.3 % (0.0-2.0); HEMATOCRIT 44.7 % (35.0-46.0); HEMO FLAGS DIFF FINAL; LYMPH % 9.7 % (9.0-44.0); LYMPHOCYTE # 2.4 TH/MM3 (1.0-4.8); MEAN CELL VOLUME 89.5 FL (80.0-100.0); MEAN CORPUSCULAR HEMOGLOBIN 29.7 PG (27.0-34.0); MEAN CORPUSCULAR HGB CONC 33.2 % (32.0-36.0); MONO % 3.7 % (0.0-8.0); NEUT % 86.3 % (16.0-70.0); PLATELET COUNT 197 TH/MM3 (150-450); RED BLOOD COUNT 4.99 MIL/MM3 (4.00-5.30); RED CELL DISTRIBUTION WIDTH 14.3 % (11.6-17.2); WHITE BLOOD COUNT 24.3 TH/MM3 (4.0-11.0)
--- NOTE | 2017-01-18 09:26 | HHI.PR ---
Review/Management Daily Summary 01/17 same cx and exam unchanged continue plans solumedrol monitor neuro pt eval 01/18 pt is anxious and I suspect a lot of her contractures are from anxiety continue solumedrol as planned and d/c after 12 dose course ok to resume her temazepan hs dr farah available over weekend Subjective Subjective Comments No acute events reported No headache No chest pain No dyspnea Active Medications Current Medications Medications (Trade) Dose Ordered Sig/Chandler Route Start Time Stop Time Status Last Admin (NS Flush) 2 ml UNSCH PRN IV FLUSH 01/16/17 12:00 (NS Flush) 2 ml BID IV FLUSH 01/16/17 21:00 01/18/17 08:29 (Zofran Inj) 4 mg Q6H PRN IVP 01/16/17 12:00 (Lovenox Inj) 40 mg Q24H SQ 01/16/17 13:00 01/17/17 13:35 (Tylenol) 650 mg Q6H PRN PO 01/16/17 12:00 (Percocet 5-325 Mg) 1 tab Q6H PRN PO 01/16/17 12:00 01/16/17 12:26 (Percocet 10-325 Mg) 1 tab Q6H PRN PO 01/16/17 12:00 01/18/17 03:21 (Narcan Inj) 0.4 mg UNSCH PRN IV 01/16/17 12:00 (ZyrTEC) 10 mg DAILY PO 01/17/17 09:00 01/18/17 08:28 (Valium) 5 mg BID PRN PO 01/16/17 15:00 01/17/17 10:10 (Lopressor) 12.5 mg DAILY PO 01/17/17 09:00 01/18/17 08:27 (Pravachol) 80 mg HS PO 01/16/17 21:00 01/17/17 21:58 (Zanaflex) 4 mg TID PO 01/16/17 18:00 01/18/17 08:27 (Topamax) 200 mg DAILY PO 01/17/17 09:00 01/17/17 10:01 (Desyrel) 50 mg HS PO 01/16/17 21:00 01/17/17 21:58 (TEGretol CHEW) 100 mg BID PO 01/16/17 21:00 01/17/17 21:58 Patient Own Medication PT OWN MED: Glatira... DAILY SQ 01/17/17 09:00 Hold (Haldol) 0.5 mg BID PRN PO 01/16/17 21:00 (Protonix Inj) 40 mg DAILY IV PUSH 01/16/17 16:00 01/18/17 08:29 (SoluMEDROL INJ) 250 mg Q6H IV PUSH 01/16/17 17:00 01/18/17 04:26 (Dilaudid Pf Inj) 1 mg Q4H PRN IV PUSH 01/17/17 11:00 01/18/17 08:25 Allergies Allergies Coded Allergies Codeine (Verified Allergy, Severe, 08/05/16) Penicillin (Verified Allergy, Severe, 08/05/16) MRI PRECAUTION (Verified Adverse Reaction, Severe, ANEURYSM CLIPS 11/18/13 VSV , 08/05/16) Uncoded Allergies MRI due to anerysm clips ( Allergy, Severe, contraindicated , 11/18/13) Review of Systems All other ROS: ROS reviewed as documented in chart Exam I&O / VS 01/17/17 01/17/17 01/18/17 15:00 23:00 07:00 Intake Total 510 ml 600 ml 650 ml Balance 510 ml 600 ml 650 ml Intake Oral 510 ml 600 ml 650 ml # Voids 1 2 # Bowel Movements 0 0 Vital Signs Date Time Temp Pulse Resp B/P Pulse Ox O2 Delivery O2 Flow Rate FiO2 01/18/17 09:11 97.3 70 17 112/57 98 01/18/17 06:15 97.1 50 17 98/58 96 01/18/17 00:30 97.7 56 17 105/52 97 01/17/17 20:30 97.8 54 18 100/50 96 01/17/17 17:53 98.1 57 19 113/74 97 01/17/17 14:59 97.1 63 18 119/71 94 01/17/17 12:21 16 01/17/17 11:01 18 Neurologic: Alert, Oriented Psychiatric: Cooperative, Appropriate mood & affect, Normal judgement Objective Micro and Labs Laboratory Tests Test 01/17/17 01/18/17 10:05 08:45 White Blood Count 19.8 24.3 Red Blood Count 4.67 4.99 Hemoglobin 14.2 14.8 Hematocrit 41.5 44.7 Mean Corpuscular Volume 88.9 89.5 Mean Corpuscular Hemoglobin 30.4 29.7 Mean Corpuscular Hemoglobin 34.2 33.2 Concent Red Cell Distribution Width 14.0 14.3 Platelet Count 202 197 Mean Platelet Volume 9.7 10.4 Neutrophils (%) (Auto) 80.6 86.3 Lymphocytes (%) (Auto) 13.9 9.7 Monocytes (%) (Auto) 5.5 3.7 Eosinophils (%) (Auto) 0.0 0.0 Basophils (%) (Auto) 0.0 0.3 Neutrophils # (Auto) 15.9 21.0 Lymphocytes # (Auto) 2.8 2.4 Monocytes # (Auto) 1.1 0.9 Eosinophils # (Auto) 0.0 0.0 Basophils # (Auto) 0.0 0.1 CBC Comment DIFF FINAL DIFF FINAL Differential Comment Sodium Level 141 Potassium Level 3.6 Chloride Level 109 Carbon Dioxide Level 18.6 Anion Gap 13 Blood Urea Nitrogen 22 Creatinine 0.93 Estimat Glomerular Filtration 64 Rate Random Glucose 181 Calcium Level 9.4 Jaxson Vang MD Jan 18, 2017 09:26
[2017-01-18 09:43] LABS: BICARBONATE 21.4 MEQ/L (21.0-32.0)
[2017-01-18 09:46] LABS: POTASSIUM 4.3 MEQ/L (3.5-5.1)
[2017-01-18] MEDS: TOPIRAMATE 200 MG TAB PO SCH (09:48)
[2017-01-18] MEDS: DIAZEPAM 5 MG TAB PO PRN (09:49)
[2017-01-18] MEDS: ENOXAPARIN SODIUM 40 MG/0.4 ML SYRINGE SQ SCH (12:26)
[2017-01-18 12:48] VITALS: BP 117/68; PULSE 59; RESP 17; TEMP 97.5; O2SAT 96
[2017-01-18 17:28] VITALS: BP 109/61; PULSE 51; RESP 17; TEMP 97; O2SAT 97
[2017-01-18 20:00] VITALS: BP 169/90; PULSE 48; RESP 19; TEMP 99.1; O2SAT 93
[2017-01-18] MEDS: PRAVASTATIN SOD 80 MG TAB PO SCH (20:54)
[2017-01-18] MEDS: TEMAZEPAM 15 MG CAP PO PRN (20:54)
[2017-01-18] MEDS: traZODone HCL 50 MG TAB PO SCH (20:54)
[2017-01-18] MEDS: HALOPERIDOL 0.5 MG TAB PO SCH (21:00)
[2017-01-19] VITALS: BP 103/57; PULSE 74; RESP 20; TEMP 96.9; O2SAT 97
[2017-01-19] MEDS: HYDROmorphone HCL PF 1 MG/ML VIAL IV PUSH PRN ×5 (03:51→20:33)
[2017-01-19 04:00] VITALS: BP 93/48; PULSE 55; RESP 20; TEMP 97.5; O2SAT 96
[2017-01-19] MEDS: methylPREDNISolone SOD SUCC 125 MG/2 ML VIAL IV PUSH SCH ×4 (05:00→22:57)
--- NOTE | 2017-01-19 07:31 | HHI.FPPN ---
Subjective Remarks Patient was seen and examined this morning. She states she was having some pain in the arms and lower extremities but this is stable. Her symptoms increased ability to move the wrist and fingers on the left hand today which excites her. She still has some work to do in regard to range of motion of the RUE and she expects she should be in the hospital for at least another couple of days. She requests a regular diet because she wants a cheeseburger and fries; patient has cardiac diet currently and has a history of having significant cardiac disease. (Arlen Rodas MD R1) Objective Vitals Vital Signs Date Time Temp Pulse Resp B/P Pulse Ox O2 Delivery O2 Flow Rate FiO2 01/19/17 04:21 16 01/19/17 04:00 97.5 55 20 93/48 96 01/19/17 00:00 96.9 74 20 103/57 97 01/18/17 20:00 99.1 48 19 169/90 93 01/18/17 17:28 97.0 51 17 109/61 97 01/18/17 12:48 97.5 59 17 117/68 96 01/18/17 09:11 97.3 70 17 112/57 98 I/O 01/18/17 01/18/17 01/18/17 01/19/17 01/19/17 01/19/17 07:00 15:00 23:00 07:00 15:00 23:00 Intake Total 650 ml 360 ml 240 ml Balance 650 ml 360 ml 240 ml Intake Oral 650 ml 360 ml 240 ml # Voids 2 3 1 1 # Bowel Movements 0 0 0 (Arlen Rodas MD R1) Result Diagram: 01/18/17 0845 01/18/17 0845 Imaging Last Impressions Head CT 01/16/17 0000 Signed Impressions: Service Date/Time: Monday, January 16, 2017 10:46 - CONCLUSION: Status post ventriculostomy and aneurysm clipping. Ventricles are small and slitlike., Stable in the interval. Aneurysm clips are noted. Roman Scanlon MD FACR Objective Remarks GENERAL: Well-nourished, well-developed patient in no apparent distress. SKIN: Focused skin assessment reveals no rash and nodules. Skin is Warm and dry. HEAD: Atraumatic. Normocephalic. EYES: Pupils equal and round. No scleral icterus. No injection or drainage. ENT: No nasal bleeding or discharge. Mucous membranes pink and moist. NECK: Trachea midline. No JVD. CARDIOVASCULAR: Regular rate and rhythm. No murmur appreciated. RESPIRATORY: No accessory muscle use. Clear to auscultation. Breath sounds equal bilaterally. GASTROINTESTINAL: Abdomen soft, non-tender, nondistended. Hepatic and splenic margins not palpable. MUSCULOSKELETAL: No obvious deformities. No clubbing. No cyanosis. No edema. NEUROLOGICAL: Awake and alert. No obvious cranial nerve deficits. Motor exam reveals a contracted left arm which she can move only with great pain, increased movement of the hand and fingers and wrist without pain. Decent strength in the right arm. Very limited strength in the legs. She can barely lift them off the bed and uses the muscles in her hips. She can wiggle her toes. When distracted patient has increased movement in arm and legs. Normal speech PSYCHIATRIC: Appropriate mood and affect; insight and judgment normal. Medications and IVs Inpatient Medications Acetaminophen (Tylenol) 650 mg Q6H PRN PO PAIN SCALE 1 TO 2; Start 01/16/17 at 12:00 Carbamazepine (TEGretol CHEW) 100 mg BID PO Last administered on 01/19/17 08: 00; Start 01/16/17 at 21:00 Cetirizine HCl (ZyrTEC) 10 mg DAILY PO Last administered on 01/19/17 08:00; Start 01/17/17 at 09:00 Diazepam (Valium) 5 mg BID PRN PO BZ Last administered on 01/19/17 08:06; Start 01/16/17 at 15:00 Enoxaparin Sodium (Lovenox Inj) 40 mg Q24H SQ Last administered on 01/18/17 12 :26; Start 01/16/17 at 13:00 Haloperidol (Haldol) 0.5 mg BID PO Last administered on 01/19/17 08:00; Start 01/18/17 at 21:00 Hydromorphone HCl (Dilaudid Pf Inj) 1 mg Q4H PRN IV PUSH BREAKTHROUGH PAIN Last administered on 01/19/17 08:02; Start 01/17/17 at 11:00 Ibuprofen (Motrin) 400 mg Q6H PRN PO PAIN SCALE 1 TO 2; Start 01/16/17 at 12:00 ; Stop 01/16/17 at 12:03; Status DC Methylprednisolone Sodium Succinate (SoluMEDROL INJ) 250 mg Q6H IV PUSH Last administered on 01/19/17 05:00; Start 01/16/17 at 17:00 Metoprolol Tartrate (Lopressor) 12.5 mg DAILY PO Last administered on 08:01; Start 01/17/17 at 09:00 Morphine Sulfate (Morphine Inj) 2 mg Q3H PRN IV BREAKTHROUGH PAIN Last administered on 01/16/17 16:15; Start 01/16/17 at 12:00; Stop 01/17/17 at 11:00 ; Status DC Naloxone HCl (Narcan Inj) 0.4 mg UNSCH PRN IV SEE LABEL COMMENTS; Start at 12:00 Ondansetron HCl (Zofran Inj) 4 mg Q6H PRN IVP NAUSEA OR VOMITING; Start at 12:00 Oxycodone/ Acetaminophen (Percocet 5-325 Mg) 1 tab Q6H PRN PO PAIN SCALE 3 TO 5 Last administered on 01/16/17 12:26; Start 01/16/17 at 12:00 Oxycodone/ Acetaminophen (Percocet 10-325 Mg) 1 tab Q6H PRN PO PAIN SCALE 6 TO 10 Last administered on 01/18/17 15:57; Start 01/16/17 at 12:00 Pantoprazole Sodium (Protonix Inj) 40 mg DAILY IV PUSH Last administered on 08:02; Start 01/16/17 at 16:00 Patient Own Medication PT OWN MED: Glatira... DAILY SQ Multiple Sclerosis; Start 01/17/17 at 09:00; Status Hold Pravastatin Sodium (Pravachol) 80 mg HS PO Last administered on 01/18/17 20:54 ; Start 01/16/17 at 21:00 Sodium Chloride (NS Flush) 2 ml BID IV FLUSH Last administered on 01/19/17 09: 00; Start 01/16/17 at 21:00 Temazepam (Restoril) 30 mg HS PRN PO SLEEP Last administered on 01/18/17 20:54 ; Start 01/18/17 at 12:00 Tizanidine HCl (Zanaflex) 4 mg TID PO Last administered on 01/19/17 08:00; Start 01/16/17 at 18:00 Topiramate (Topamax) 200 mg DAILY PO Last administered on 01/19/17 08:00; Start 01/17/17 at 09:00 Trazodone HCl (Desyrel) 50 mg HS PO Last administered on 01/18/17 20:54; Start 01/16/17 at 21:00 (Arlen Rodas MD R1) Urinary Catheter: No (Arlen Rodas MD R1) Vascular Central Line Catheter: No (Arlen Rodas MD R1) A/P Assessment and Plan 46 year old women with an extensive past medical history of HTN, Hyperlipidemia , Anxiety, Depression, Fibromyalgia, IBS, 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 Discharge Planning Likely tomorrow. She will most likely return to [facility]. Patient requires a couple more doses of IV steroids and clearance from neurology. (Arlen Rodas MD R1) Attending Attestation Patient seen and examined. Case reviewed and discussed with the resident team. Agree with plan of care as discussed with me and documented in the resident note. (Munira Jarrell MD) Problem List: (1) Multiple sclerosis exacerbation Status: Acute Plan: Continue IV Solu-Medrol high-dose per neurology. She has currently had 10 doses and the full course will be 12 doses. Course will be completed tomorrow. We'll follow up neurology recommendations. Symptoms are improving slowly. Hospital course: Acute on chronic exacerbation of her multiple sclerosis. CT did not show any acute changes. Patient cannot get MRI due to aneurysm clips. Current symptoms involved contracture of the left arm and weakness of the lower extremities. * Admitted to inpatient * Neurology consulted, recommendations appreciated * on Solumedrol 250 q 6 hours, to complete a 12 dose course * Zofran for nausea/vomiting * Percocet 5/325 mg every 6 hours when necessary 3-5 * Percocet 10/325 mg every 6 hours when necessary 6-10 * 2 mg IV Dilaudid every 3 hours when necessary breakthrough pain * Continue home medication of Glatiramer inj * Monitor electrolytes and CBC as indicated 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 * 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, CT unchanged from previous imaging will continue to monitor (5) brain aneurysm status post clipping Status: Resolved 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 * Continue to monitor at this time CT unchanged from previous imaging (6) Depression Status: Chronic Plan: Long-standing history of anxiety and depression * Continue home medication of trazodone 50 mg by mouth at bedtime * Continue home medication of diazepam 5 mg by mouth twice a day when necessary anxiety (7) Nutrition, metabolism, and development symptoms Status: Acute Plan: Diet: Heart healthy Monitor electrolytes and replace accordingly Out of bed ad fredrick Vitals every 4hr Neuro checks every 4hr DVT prophylaxis with Lovenox Disposition: Pending neurology recommendations, usually pts go home after 3 days Code Status: DNR (Arlen Rodas MD R1) Problem Qualifiers (1) HTN (hypertension): Qualified Code: I10 - Essential hypertension (2) Depression: Qualified Code: F32.9 - Depression, unspecified depression type Arlen Rodas MD R1 Jan 19, 2017 07:31 Munira Jarrell MD January 21, 2017 11:55
[2017-01-19] MEDS: TOPIRAMATE 200 MG TAB PO SCH (08:00)
[2017-01-19] MEDS: HALOPERIDOL 0.5 MG TAB PO SCH ×2 (08:00→20:31)
[2017-01-19] MEDS: CETIRIZINE HCL 10 MG TAB PO SCH (08:00)
[2017-01-19] MEDS: METOPROLOL TARTRATE 25 MG TAB PO SCH (08:01)
[2017-01-19] MEDS: PANTOPRAZOLE SODIUM 40 MG VIAL IV PUSH SCH (08:02)
[2017-01-19] MEDS: DIAZEPAM 5 MG TAB PO PRN ×2 (08:06→22:57)
[2017-01-19] MEDS: SODIUM CHLORIDE 0.9% FLUSH 10 ML FLUSH IV FLUSH SCH ×2 (09:00→20:32)
[2017-01-19 09:08] VITALS: BP 113/78; PULSE 49; RESP 18; TEMP 97.9; O2SAT 95
[2017-01-19] MEDS: oxyCODONE/ACETAMINOPHEN 10 MG/325 MG TAB PO PRN ×3 (10:26→22:58)
[2017-01-19] MEDS: ENOXAPARIN SODIUM 40 MG/0.4 ML SYRINGE SQ SCH (12:00)
[2017-01-19 12:18] VITALS: BP 102/56; PULSE 58; RESP 18; TEMP 97.4; O2SAT 97
[2017-01-19 16:44] VITALS: BP 117/60; PULSE 92; RESP 18; TEMP 98.5; O2SAT 96
[2017-01-19 20:00] VITALS: BP 121/65; PULSE 57; RESP 22; TEMP 98.2; O2SAT 96
[2017-01-19] MEDS: PRAVASTATIN SOD 80 MG TAB PO SCH (20:30)
[2017-01-19] MEDS: traZODone HCL 50 MG TAB PO SCH (20:31)
[2017-01-19] MEDS: TEMAZEPAM 15 MG CAP PO PRN (22:57)
[2017-01-20 03:59] VITALS: BP 120/56; PULSE 52; RESP 18; TEMP 97.6; O2SAT 97
[2017-01-20] MEDS: oxyCODONE/ACETAMINOPHEN 10 MG/325 MG TAB PO PRN ×2 (05:06→11:49)
[2017-01-20] MEDS: methylPREDNISolone SOD SUCC 125 MG/2 ML VIAL IV PUSH SCH ×2 (05:07→10:10)
[2017-01-20] MEDS: HYDROmorphone HCL PF 1 MG/ML VIAL IV PUSH PRN ×2 (06:24→10:14)
--- NOTE | 2017-01-20 07:50 | HHI.DCPOC ---
Discharge Care Plan Diagnosis: (1) Multiple sclerosis exacerbation (2) brain aneurysm status post clipping (3) Chiari malformation (4) HTN (hypertension) (5) Seizure disorder (6) Multiple sclerosis (7) Intractable back pain (8) MS Flare Goals to Promote Your Health * To prevent worsening of your condition and complications * To maintain your health at the optimal level Directions to Meet Your Goals Take your medications as prescribed Follow your dietary instruction Follow activity as directed Keep your appointments as scheduled Take your immunizations and boosters as scheduled If your symptoms worsen call your PCP, if no PCP go to Urgent Care Center or Emergency Room Smoking is Dangerous to Your Health. Avoid second hand smoke Call the 24-hour hour crisis hotline for domestic abuse at Arlen Rodas MD R1 Jan 20, 2017 07:50
[2017-01-20 08:53] VITALS: BP 122/74; PULSE 51; RESP 18; TEMP 96.2; O2SAT 96
[2017-01-20] MEDS ORDERED: NICOTINE 21 MG/24 HR PATCH T-DERMAL SCH (09:00)
[2017-01-20] MEDS ORDERED: DOCUSATE SODIUM 50 MG/SENNA 8.6 MG TAB PO ONE (09:00)
[2017-01-20] MEDS ORDERED: HALO0.5T PO (09:00)
[2017-01-20] MEDS ORDERED: PANT40TA3 PO (09:00)
[2017-01-20] MEDS ORDERED: TRAZ50TA12 PO (09:00)
[2017-01-20] MEDS ORDERED: METO25TA3 PO (09:00)
[2017-01-20] MEDS ORDERED: TOPI200 PO (09:00)
[2017-01-20] MEDS ORDERED: TIZA2TAB PO (09:00)
[2017-01-20] MEDS ORDERED: EPIP0.3I IM (09:00)
[2017-01-20] MEDS ORDERED: OXYC1TAB36 PO (09:00)
[2017-01-20] MEDS ORDERED: CARB1TAB48 PO (09:00)
[2017-01-20] MEDS ORDERED: CETI10 PO (09:00)
[2017-01-20] MEDS ORDERED: DIAZ5 PO (09:00)
[2017-01-20] MEDS: METOPROLOL TARTRATE 25 MG TAB PO SCH (09:00)
[2017-01-20] MEDS ORDERED: TEMA15CA PO (09:00)
[2017-01-20] MEDS ORDERED: PRAV80TA2 PO (09:00)
--- NOTE | 2017-01-20 09:00 | HHI.FPPN ---
Subjective Remarks Patient seen and examined this morning. Afebrile vital signs stable. She has completed her steroid regimen today. She reports that she is ready to go back home mainly because she wants to smoke cigarettes. She reports that the contracture in her arm is improving and she has full control of her hand. She still has to walk with her hips but her feet no longer are feeling numb. Endorses: Mild contracture of the left arm Denies: Fever, chills, nausea, vomiting, shortness of breath, chest pain, headache, abdominal pain, calf pain (Alonso Deal MD R2) Objective Vitals Vital Signs Date Time Temp Pulse Resp B/P Pulse Ox O2 Delivery O2 Flow Rate FiO2 01/20/17 08:53 96.2 51 18 122/74 96 01/20/17 06:58 19 01/20/17 06:06 19 01/20/17 03:59 97.6 52 18 120/56 97 01/19/17 20:00 98.2 57 22 121/65 96 01/19/17 16:44 98.5 92 18 117/60 96 01/19/17 12:18 97.4 58 18 102/56 97 01/19/17 09:08 97.9 49 18 113/78 95 I/O 01/19/17 01/19/17 01/19/17 01/20/17 01/20/17 01/20/17 07:00 15:00 23:00 07:00 15:00 23:00 Intake Total 480 ml Balance 480 ml Intake Oral 480 ml # Voids 1 4 # Bowel Movements 0 (Alonso Deal MD R2) Result Diagram: 01/18/17 0845 01/18/17 0845 Imaging Last Impressions Head CT 01/16/17 0000 Signed Impressions: Service Date/Time: Monday, January 16, 2017 10:46 - CONCLUSION: Status post ventriculostomy and aneurysm clipping. Ventricles are small and slitlike., Stable in the interval. Aneurysm clips are noted. Roman Scanlon MD FACR Objective Remarks GENERAL: Well-nourished, well-developed patient in no apparent distress. SKIN: Focused skin assessment reveals no rash and nodules. Skin is Warm and dry. HEAD: Atraumatic. Normocephalic. EYES: Pupils equal and round. No scleral icterus. No injection or drainage. ENT: No nasal bleeding or discharge. Mucous membranes pink and moist. NECK: Trachea midline. No JVD. CARDIOVASCULAR: Regular rate and rhythm. No murmur appreciated. RESPIRATORY: No accessory muscle use. Clear to auscultation. Breath sounds equal bilaterally. GASTROINTESTINAL: Abdomen soft, non-tender, nondistended. Hepatic and splenic margins not palpable. MUSCULOSKELETAL: No obvious deformities. No clubbing. No cyanosis. No edema. NEUROLOGICAL: Awake and alert. No obvious cranial nerve deficits. Motor exam reveals a contracted left arm which she can move only with great pain, increased movement of the hand and fingers and wrist without pain. Decent strength in the right arm. Very limited strength in the legs. She can barely lift them off the bed and uses the muscles in her hips. She can wiggle her toes. When distracted patient has increased movement in arm and legs. Normal speech PSYCHIATRIC: Appropriate mood and affect; insight and judgment normal. Medications and IVs Current Medications Medications (Trade) Dose Ordered Sig/Chandler Route Start Time Stop Time Status Last Admin (NS Flush) 2 ml UNSCH PRN IV FLUSH 01/16/17 12:00 (NS Flush) 2 ml BID IV FLUSH 01/16/17 21:00 01/19/17 20:32 (Zofran Inj) 4 mg Q6H PRN IVP 01/16/17 12:00 (Lovenox Inj) 40 mg Q24H SQ 01/16/17 13:00 01/19/17 12:00 (Tylenol) 650 mg Q6H PRN PO 01/16/17 12:00 (Percocet 5-325 Mg) 1 tab Q6H PRN PO 01/16/17 12:00 01/16/17 12:26 (Percocet 10-325 Mg) 1 tab Q6H PRN PO 01/16/17 12:00 01/20/17 05:06 (Narcan Inj) 0.4 mg UNSCH PRN IV 01/16/17 12:00 (ZyrTEC) 10 mg DAILY PO 01/17/17 09:00 01/19/17 08:00 (Valium) 5 mg BID PRN PO 01/16/17 15:00 01/19/17 22:57 (Lopressor) 12.5 mg DAILY PO 01/17/17 09:00 01/19/17 08:01 (Pravachol) 80 mg HS PO 01/16/17 21:00 01/19/17 20:30 (Zanaflex) 4 mg TID PO 01/16/17 18:00 01/19/17 17:03 (Topamax) 200 mg DAILY PO 01/17/17 09:00 01/19/17 08:00 (Desyrel) 50 mg HS PO 01/16/17 21:00 01/19/17 20:31 (TEGretol CHEW) 100 mg BID PO 01/16/17 21:00 01/19/17 20:30 Patient Own Medication PT OWN MEDS Glatira... 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 Discharge Planning Discharged home today, possibly. She will return to [facility]. Patient requires a couple more doses of IV steroids and clearance from neurology. (Alonso Deal MD R2) Attending Attestation Patient seen and examined. Case reviewed and discussed with the resident team. Agree with plan of care as discussed with me and documented in the resident note. (Munira Jarrell MD) Problem List: (1) Multiple sclerosis exacerbation Status: Acute Plan: Pleated regimen of Solu-Medrol high-dose per neurology. We'll follow up neurology recommendations. Symptoms are improving slowly. Hospital course: Acute on chronic exacerbation of her multiple sclerosis. CT did not show any acute changes. Patient cannot get MRI due to aneurysm clips. Current symptoms involved contracture of the left arm and weakness of the lower extremities. * Admitted to inpatient * Neurology consulted, recommendations appreciated * Completed Solumedrol 250 q 6 hours * Zofran for nausea/vomiting * Percocet 5/325 mg every 6 hours when necessary 3-5 * Percocet 10/325 mg every 6 hours when necessary 6-10 * 2 mg IV Dilaudid every 3 hours when necessary breakthrough pain * Continue home medication of Glatiramer inj * Monitor electrolytes and CBC as indicated 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 * 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, CT unchanged from previous imaging will continue to monitor (5) brain aneurysm status post clipping Status: Resolved 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 * Continue to monitor at this time CT unchanged from previous imaging (6) Depression Status: Chronic Plan: Long-standing history of anxiety and depression * Continue home medication of trazodone 50 mg by mouth at bedtime * Continue home medication of diazepam 5 mg by mouth twice a day when necessary anxiety (7) Nutrition, metabolism, and development symptoms Status: Acute Plan: Diet: Heart healthy Monitor electrolytes and replace accordingly Out of bed ad fredrick Vitals every 4hr Neuro checks every 4hr DVT prophylaxis with Lovenox Disposition: Pending neurology recommendations Code Status: DNR (Alonso Deal MD R2) Problem Qualifiers (1) HTN (hypertension): Qualified Code: I10 - Essential hypertension (2) Depression: Qualified Code: F32.9 - Depression, unspecified depression type Alonso Deal MD R2 Jan 20, 2017 09:00 Munira Jarrell MD January 21, 2017 11:55
[2017-01-20] MEDS: SODIUM CHLORIDE 0.9% FLUSH 10 ML FLUSH IV FLUSH SCH (10:11)
[2017-01-20] MEDS: PANTOPRAZOLE SODIUM 40 MG VIAL IV PUSH SCH (10:11)
[2017-01-20] MEDS: TOPIRAMATE 200 MG TAB PO SCH (10:11)
[2017-01-20] MEDS: CETIRIZINE HCL 10 MG TAB PO SCH (10:11)
[2017-01-20] MEDS: HALOPERIDOL 0.5 MG TAB PO SCH (10:13)
[2017-01-20] MEDS ORDERED: DOCU8.6T PO (10:57)
[2017-01-20] MEDS: ENOXAPARIN SODIUM 40 MG/0.4 ML SYRINGE SQ SCH (11:49)
[2017-01-20] MEDS: DIAZEPAM 5 MG TAB PO PRN (11:49)
[2017-01-20 12:32] LABS: AUTOMATED NEUTROPHIL # 14.9 TH/MM3 (1.8-7.7); BASOPHIL % 0.1 % (0.0-2.0); HEMATOCRIT 42.3 % (35.0-46.0); HEMO FLAGS DIFF FINAL; LYMPH % 11.8 % (9.0-44.0); LYMPHOCYTE # 2.1 TH/MM3 (1.0-4.8); MEAN CELL VOLUME 90.1 FL (80.0-100.0); MEAN CORPUSCULAR HEMOGLOBIN 30.2 PG (27.0-34.0); MEAN CORPUSCULAR HGB CONC 33.5 % (32.0-36.0); NEUT % 82.1 % (16.0-70.0); PLATELET COUNT 172 TH/MM3 (150-450); RED CELL DISTRIBUTION WIDTH 14.3 % (11.6-17.2); WHITE BLOOD COUNT 18.2 TH/MM3 (4.0-11.0)
[2017-01-20 12:34] VITALS: BP 120/67; PULSE 73; RESP 18; TEMP 97.1; O2SAT 97
[2017-01-20 13:12] LABS: BICARBONATE 24.9 MEQ/L (21.0-32.0); POTASSIUM 4.2 MEQ/L (3.5-5.1)
--- NOTE | 2017-01-20 16:08 | HHI.DS ---
Discharge Summary Admission Date Jan 17, 2017 at 13:07 Discharge Date: Jan 20, 2017 Admitting Diagnosis exac of MS (1) Multiple sclerosis exacerbation Diagnosis: Principal Plan: Pleated regimen of Solu-Medrol high-dose per neurology. We'll follow up neurology recommendations. Symptoms are improving slowly. Hospital course: Acute on chronic exacerbation of her multiple sclerosis. CT did not show any acute changes. Patient cannot get MRI due to aneurysm clips. Current symptoms involved contracture of the left arm and weakness of the lower extremities. * Admitted to inpatient * Neurology consulted, recommendations appreciated * Completed Solumedrol 250 q 6 hours * Zofran for nausea/vomiting * Percocet 5/325 mg every 6 hours when necessary 3-5 * Percocet 10/325 mg every 6 hours when necessary 6-10 * 2 mg IV Dilaudid every 3 hours when necessary breakthrough pain * Continue home medication of Glatiramer inj * Monitor electrolytes and CBC as indicated (2) HTN (hypertension) Diagnosis: Secondary Plan: Long-standing history of hypertension * Continue home medication of metoprolol 12.5 mg by mouth daily (3) Seizure disorder Diagnosis: Secondary Plan: Patient has a history of seizure disorder * Neurology consulted recommendations appreciated * Continue home medication of Topamax 20 mg by mouth daily * Continue home medication of carbamazepine 100 mg by mouth twice a day * Haldol 0.5 mg by mouth twice a day when necessary severe anxiety or agitation (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 * Status post INFORMATICA MDM ARCHITECT shunt, CT unchanged from previous imaging will continue to monitor (5) brain aneurysm status post clipping Diagnosis: Secondary 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 * Continue to monitor at this time CT unchanged from previous imaging (6) Depression Diagnosis: Secondary Plan: Long-standing history of anxiety and depression * Continue home medication of trazodone 50 mg by mouth at bedtime * Continue home medication of diazepam 5 mg by mouth twice a day when necessary anxiety Consultants Neurology Procedures None Brief History Of note patient is a poor historian Ms Lara is a 46 year old women with an extensive past medical history of HTN , Hyperlipidemia, Anxiety, Depression, Fibromyalgia, IBS, INFORMATICA MDM ARCHITECT Shunt and MS who came into the ER complaints of a flareup of her MS. She says that starting last night she felt her left arm kory and her feet kory inwards. Her arm became contracted to the point where she could no longer move it. This concerned her and she decided to come to the [facility] for further evaluation. She does report for the last 2 days noticing worsening blurriness when she is watching TV. She says that she has to swing her hips in order to walk to the contractions in her feet. Her muscles are painful throughout her entire body. Of note she reports that she's been without her chronic opiates for the last few days. She was started on steroids and is about the same today with her pain and strength and complaining of severe pain and requesting dilaudid. She is concerned that her medicine to prevent MS flares is not working as well as this is her second flare within 6 months and she had done better prior to this CBC/BMP: 01/20/17 1200 01/20/17 1205 Significant Findings Laboratory Tests Test 01/18/17 01/20/17 01/20/17 08:45 12:00 12:05 White Blood Count 24.3 TH/MM3 18.2 TH/MM3 (4.0-11.0) (4.0-11.0) Neutrophils (%) (Auto) 86.3 % 82.1 % (16.0-70.0) (16.0-70.0) Neutrophils # (Auto) 21.0 TH/MM3 14.9 TH/MM3 (1.8-7.7) (1.8-7.7) Chloride Level 110 MEQ/L (98-107) Blood Urea Nitrogen 25 MG/DL (7-18) 24 MG/DL (7-18) Estimat Glomerular Filtration 69 ML/MIN (>89) 61 ML/MIN (>89) Rate Random Glucose 142 MG/DL 240 MG/DL (74-106) (74-106) Monocytes # (Auto) 1.1 TH/MM3 (0-0.9) PE at Discharge GENERAL: Well-nourished, well-developed patient in no apparent distress. SKIN: Focused skin assessment reveals no rash and nodules. Skin is Warm and dry. HEAD: Atraumatic. Normocephalic. EYES: Pupils equal and round. No scleral icterus. No injection or drainage. ENT: No nasal bleeding or discharge. Mucous membranes pink and moist. NECK: Trachea midline. No JVD. CARDIOVASCULAR: Regular rate and rhythm. No murmur appreciated. RESPIRATORY: No accessory muscle use. Clear to auscultation. Breath sounds equal bilaterally. GASTROINTESTINAL: Abdomen soft, non-tender, nondistended. Hepatic and splenic margins not palpable. MUSCULOSKELETAL: No obvious deformities. No clubbing. No cyanosis. No edema. NEUROLOGICAL: Awake and alert. No obvious cranial nerve deficits. Motor exam reveals a contracted left arm which she can move only with great pain, increased movement of the hand and fingers and wrist without pain. Decent strength in the right arm. Very limited strength in the legs. She can barely lift them off the bed and uses the muscles in her hips. She can wiggle her toes. When distracted patient has increased movement in arm and legs. Normal speech PSYCHIATRIC: Appropriate mood and affect; insight and judgment normal. Hospital Course Patient was admitted with new-onset neurological symptoms and pain in the extremities, with CT showing no acute findings. She had run out of pain medications at home. Differential diagnosis on admission was MS exacerbation vs. other neurological source. CT did not show evidence of hemorrhage; MRI could not be performed due to aneurysm clips. Dr. Nolasco is patient's neurologist ; saw patient in ED and recommended treatment x 12 doses of high dose steroids and pain control. She was continued on home medications and steroids were administered 01/17 to 01/20, with completion of steroids the morning of 01/20. She was given scripts for pain meds and home meds were refilled; per neurology, steroids were not tapered per neurology recommendations. She was cleared per Neurology and discharged back to [facility] in stable condition. Pt Condition on Discharge: Stable Discharge Disposition: [facility] Discharge Instructions DIET: Follow Instructions for: As Tolerated, No Restrictions Activities you can perform: Regular-No Restrictions Follow up Referrals: Neurology - 1 Week with Jaxson Vang MD New Medications: Pantoprazole (Pantoprazole) 40 Mg Tab 40 MG PO DAILY Reflux #30 Ref 0 TAB Sennosides-Docusate Sodium (Docusate Sodium-Senna) 8.6-50 Mg Tab 1 TAB PO HS Prevent Constipation #30 Ref 0 TAB Continued Medications: Carbamazepine ER 12 HR (Carbamazepine ER 12 HR) 100 Mg Tab 100 MG PO BID #60 TAB (This prescription has been renewed) Cetirizine (Cetirizine) 10 Mg Tab 10 MG PO DAILY Allergies #30 Ref 0 TAB (This prescription has been renewed) Diazepam (Valium) 5 Mg Tab 5 MG PO BID PRN BZ #10 Ref 0 TAB (This prescription has been renewed) Epinephrine Inj (Epipen 2-Corey Inj) 0.3 Mg/0.3 Ml Pfpen 0.3 MG IM DIRECTED PRN ALLERGIC REACTION #1 PACK (This prescription has been renewed) Glatiramer Inj (Copaxone Inj) 20 Mg/Ml Syr 20 MG SQ DAILY Multiple Sclerosis Haloperidol (Haloperidol) 0.5 Mg Tab 0.5 MG PO BID antipsychotic #10 TAB (This prescription has been renewed) Metoprolol Tartrate (Metoprolol Tartrate) 25 Mg Tab 12.5 MG PO DAILY #30 TAB (This prescription has been renewed) Oxycodone-Acetaminophen (Oxycodone-Acetaminophen) 10-325 mg Tab 1 TAB PO Q4H PRN PAIN #30 Ref 0 TAB (This prescription has been renewed) Pravastatin (Pravastatin) 80 Mg Tab 80 MG PO HS Cholesterol Management #30 TAB (This prescription has been renewed) Temazepam (Temazepam) 15 Mg Cap 15 MG PO HS PRN INSOMNIA #10 Ref 2 TAB (This prescription has been renewed) Tizanidine (Tizanidine) 2 Mg Tab 4 MG PO TID Muscle Spasm #30 TAB (This prescription has been renewed) Topiramate (Topamax) 200 Mg Tab 200 MG PO DAILY Control Seizures #30 TAB (This prescription has been renewed) Trazodone (Trazodone) 50 Mg Tab 50 MG PO HS Control Depression #30 Ref 0 TAB (This prescription has been renewed ) Discontinued Medications: Prednisone (Prednisone) 20 Mg Tab 60 MG PO DIRECTED PREDNISONE 60MG DAILY x 7 DAYS, PREDNISONE 40MG DAILY x 7 DAYS, PREDNISONE 20MG DAILY x 16 DAYS. Inflammation Days 30 TAB Arlen Rodas MD R1 Jan 20, 2017 16:08
[2017-01-20] MEDS ORDERED: REMOVE OLD PATCH T-DERMAL SCH (21:00)
== END 2017-01-20 16:42 | DRG 60 ==
LOC: NEPD 09:30 → NEDA 12:12 → NEDH 20:03 → NEPHCDU 22:56 → OBSVTOIN 01-17 13:07 → N05A 01-17 17:42
PROVIDERS: ADMIT Family Medicine; ATTEND Family Medicine
DX: G35 Multiple sclerosis (principal); I10 Essential (primary) hypertension; F41.9 Anxiety disorder, unspecified; E78.5 Hyperlipidemia, unspecified; F17.210 Nicotine dependence, cigarettes, uncomplicated; G40.909 Epilepsy, unspecified, not intractable, without status epilepticus; F32.9 Major depressive disorder, single episode, unspecified; Z86.79 Personal history of other diseases of the circulatory system; Z98.2 Presence of cerebrospinal fluid drainage device; Z86.73 Personal history of transient ischemic attack (TIA), and cerebral infarction without residual deficits; Z88.5 Allergy status to narcotic agent; Z88.0 Allergy status to penicillin
CPT/HCPCS: 70450; 76937; 80048; 85025; C9113; G0378; J1170; J1650; J2270; J2930